=== PATIENT | male | born 1990 | race Hispanic/Latino ===

== ENCOUNTER 2016-11-27 19:12 | Inpatient (IN) | payer OTHER ==
--- NOTE | 2016-11-27 19:31 | C.PDOC ---
History Of Present Illness Patient is a 26 y/o male, with no significant past medical history, presents to ED for evaluation of RLQ abdominal pain that developed yesterday. Pain is described as dull, aching, and non-radiating. Denies pain being related to any food. Otherwise, denies any n/v/d, constipation, fever, or chills. Time Seen by Provider: 11/27/16 19:31 Chief Complaint (Nursing): Abdominal Pain History Per: Patient History/Exam Limitations: no limitations Onset/Duration Of Symptoms: Days (1), Sudden Onset Current Symptoms Are (Timing): Still Present Context: Other (none) Severity: Moderate Pain Scale Rating Of: 4 Location Of Pain/Discomfort: RUQ Radiation Of Pain To:: None Quality Of Discomfort: Dull, Aching Associated Symptoms: denies: Fever, Chills, Nausea, Vomiting, Diarrhea, Loss Of Appetite, Back Pain, Chest Pain, Constipation, Urinary Symptoms Exacerbating Factors: None Alleviating Factors: None Last Bowel Movement: Other (unknown) Recent travel outside of the [place]: No Additional History Per: Patient Past Medical History Reviewed: Historical Data, Nursing Documentation, Vital Signs Vital Signs: Last Vital Signs Temp 98.8 F 11/27/16 19:19 Pulse 70 11/27/16 19:19 Resp 20 11/27/16 19:19 BP 126/80 11/27/16 19:19 Pulse Ox 99 11/27/16 19:50 - Medical History PMH: No Chronic Diseases Family History: States: No Known Family Hx - Social History Hx Alcohol Use: Yes Hx Substance Use: No - Immunization History Hx Tetanus Toxoid Vaccination: No Hx Influenza Vaccination: No Hx Pneumococcal Vaccination: No Review Of Systems Constitutional: Negative for: Fever, Chills Cardiovascular: Negative for: Chest Pain, Palpitations, Edema, Light Headedness Respiratory: Negative for: Cough, Shortness of Breath, Wheezing Gastrointestinal: Positive for: Abdominal Pain (RLQ). Negative for: Nausea, Vomiting, Diarrhea, Constipation Genitourinary: Negative for: Dysuria, Frequency, Incontinence, Hematuria, Penile Discharge, Penile Pain Musculoskeletal: Negative for: Neck Pain, Back Pain Skin: Negative for: Rash, Lesions, Bruising Neurological: Negative for: Weakness, Numbness, Headache, Dizziness Physical Exam - Physical Exam Appears: Non-toxic, No Acute Distress Skin: Warm, Dry Head: Normacephalic Eye(s): bilateral: Normal Inspection Oral Mucosa: Moist Neck: Supple Chest: Symmetrical Cardiovascular: Rhythm Regular Respiratory: No Rales, No Rhonchi, No Wheezing Gastrointestinal/Abdominal: Bowel Sounds (Tympanic to percussion), Soft, Tenderness (RLQ), No Distention, No Guarding, No Rebound Back: No CVA Tenderness Extremity: Normal ROM Extremity: Bilateral: Atraumatic, Normal ROM Pulses: Left Dorsalis Pedis: Normal, Right Dorsalis Pedis: Normal Neurological/Psych: Oriented x3, Normal Speech, Normal Cognition Gait: Steady ED Course And Treatment - Laboratory Results Result Diagrams: 11/27/16 19:37 11/27/16 19:37 O2 Sat by Pulse Oximetry: 99 (on RA) Pulse Ox Interpretation: Normal Progress Note: Plan: Blood work, UA. Patient was given IV fluids, Toradol, and Pepcid. Disposition Discussed With : Diego Garcia Comment: accepted the pt on her service and took over the care at 9:48 PM Doctor Will See Patient In The: Hospital Counseled Patient/Family Regarding: Studies Performed, Diagnosis - Disposition Disposition: HOSPITALIZED Disposition Time: 19:31 Condition: FAIR Forms: [facility] (Swedish) - POA Present On Arrival: None - Clinical Impression Clinical Impression: Acute appendicitis - Scribe Statement The provider has reviewed the documentation as recorded by the Scribcitlaly Pelaez All medical record entries made by the Scribe were at my direction and personally dictated by me. I have reviewed the chart and agree that the record accurately reflects my personal performance of the history, physical exam, medical decision making, and the department course for this patient. I have also personally directed, reviewed, and agree with the discharge instructions and disposition. Decision To Admit - Pt Status Changed To: Hospital Disposition Of: Inpatient - Admit Certification Admit to Inpatient:: After my assessment, the patient will require hospitalization for at least two midnights. This is because of the severity of symptoms shown, intensity of services needed, and/or the medical risk in this patient being treated as an outpatient. - InPatient: Physician Admission Certification:: After my assessment, the patient will require hospitalization for at least two midnights. This is because of the severity of symptoms shown, intensity of services needed, and/or the medical risk in this patient being treated as an outpatient. - . Bed Request Type: Regular Admitting Physician: Diego Garcia Patient Diagnosis: Acute appendicitis
[2016-11-27] MEDS ORDERED: Sodium Chloride 0.9% 1,000 ML IV ONE (19:34)
[2016-11-27] MEDS ORDERED: Sodium Chloride 0.9% 1,000 ML ONE (19:39)
[2016-11-27 19:42] LABS: BASO % 0.4 % (0.0-2.0); EOS # 0.1 K/uL (0.0-0.7); EOS % 0.7 % (0.0-4.0); HEMATOCRIT 43.5 % (35.0-51.0); LYMPH # 1.4 K/uL (1.0-4.3); LYMPH % 14.7 % (20.0-40.0); MEAN CELL VOLUME 83.6 fL (80.0-94.0); MEAN CORPUSCULAR HEMOGLOBIN 28.8 pg (27.0-31.0); MEAN CORPUSCULAR HGB CONC 34.5 g/dL (33.0-37.0); MEAN PLATELET VOLUME 11.3 fL (7.2-11.7); MONO # 0.6 K/uL (0.0-0.8); MONO % 6.3 % (0.0-10.0); RED CELL DISTRIBUTION WIDTH 13.4 % (11.5-14.5); WHITE BLOOD COUNT 9.4 K/uL (4.8-10.8)
[2016-11-27 19:44] LABS: RBC URINE < 1 /hpf (0-3); URINE BILIRUBIN NEGATIVE (NEGATIVE); URINE BLOOD NEGATIVE (NEGATIVE); URINE COLOR Yellow (YELLOW); URINE GLUCOSE (UA) NORMAL (Normal); URINE KETONE NEGATIVE (NEGATIVE); URINE LEUKOCYTE ESTERASE NEG Leu/uL (Negative); URINE PROTEIN NEGATIVE (NEGATIVE); URINE UROBILINOGEN NORMAL mg/dL (0.2-1.0)
[2016-11-27 19:52] LABS: CHLORIDE 98 mmol/L (98-107)
[2016-11-27 19:53] LABS: POTASSIUM 3.8 mmol/L (3.6-5.2); SODIUM 137 mmol/L (132-148)
[2016-11-27 19:55] LABS: CARBON DIOXIDE 27 mmol/L (22-30); GFR AFRICAN-AMERICAN > 60
[2016-11-27 19:56] LABS: ALB/GLOB RATIO 1.3 (1.0-2.1); ALKALINE PHOSPHATASE 57 U/L (38-126); ALT/SGPT 33 U/L (21-72); AST/SGOT 21 U/L (17-59); BILIRUBIN,TOTAL 0.7 mg/dL (0.2-1.3); BLOOD UREA NITROGEN 12 mg/dL (9-20); CALCIUM 8.9 mg/dl (8.6-10.4); GLUCOSE,RANDOM 95 mg/dL (75-110); TOTAL PROTEIN 7.4 g/dL (6.3-8.3)
[2016-11-27] MEDS ORDERED: Iodixanol 320 MG/ML 100 ML BOTTLE IV ONE (20:33)
--- NOTE | 2016-11-27 21:25 | CT ---
EXAM: CT Abdomen and Pelvis With Intravenous Contrast EXAM DATE/TIME: Exam ordered 11/27/2016 8:06 PM CLINICAL HISTORY: 26 years old, male; Pain; Abdominal pain; Flank; Right lower quadrant (rlq); Additional info: Rlq abd pain TECHNIQUE: Axial computed tomography images of the abdomen and pelvis with intravenous contrast. All CT scans at this facility use one or more dose reduction techniques, viz.: automated exposure control; ma/kV adjustment per patient size (including targeted exams where dose is matched to indication; i.e. head); or iterative reconstruction technique. Coronal and sagittal reformatted images were created and reviewed. CONTRAST: 100 mL of VISIPAQUE 320 administered intravenously. COMPARISON: No relevant prior studies available. FINDINGS: Lower thorax: No acute findings. ABDOMEN: Liver: Unremarkable. No mass. Gallbladder and bile ducts: Unremarkable. No calcified stones. No ductal dilation. Pancreas: Unremarkable. No mass. No ductal dilation. Spleen: Unremarkable. No splenomegaly. Adrenals: Unremarkable. No mass. Kidneys and ureters: Unremarkable. No solid mass. No hydronephrosis. Stomach and bowel: Unremarkable. No obstruction. No mucosal thickening. Appendix: Mild periappendiceal inflammatory changes are noted. PELVIS: Bladder: Unremarkable. No mass. Reproductive: Unremarkable as visualized. ABDOMEN and PELVIS: Intraperitoneal space: Unremarkable. No free air. No significant fluid collection. Bones/joints: No acute fracture. No dislocation. Soft tissues: Unremarkable. Vasculature: Unremarkable. No abdominal aortic aneurysm. Lymph nodes: Mildly prominent mesenteric lymph nodes are present. IMPRESSION: 1. Early acute appendicitis. No abscess. No perforation.
[2016-11-27] MEDS ORDERED: Piperacillin/Tazobact 3.375 gm 100 ML IVPB STA (21:39)
[2016-11-27] MEDS ORDERED: Piperacillin/Tazobact 3.375 gm 100 ML IVPB ONE (21:46)
[2016-11-27 23:07] LABS: INR 1.3
[2016-11-27] MEDS ORDERED: Piperacillin/Tazobact 3.375 GM in Sodium Chloride 100 ML IVPB SCH (23:15)
--- NOTE | 2016-11-27 23:29 | CP.PCM.HP ---
History of Present Illness - History of Present Illness History of Present Illness: Patient is a 26 y/o male who presented to the ED complaining of RLQ pain that started last night. Pt describes the pain as cramping and rates it a 5-6/10. Pt reports he has felt no relieve in pain even after having BM/passing flatus. Pt states the pain is relieved by staying still and movement makes the pain worse. Pt denies worsening of abdominal pain after eating. Patient admits to nausea. Pt denies fevers, chills, vomiting, diarrhea, constipation. PMHx: None PSurgHx:None Allergies: NKDA Social: Student, non-smoker. Admits to occasional social drinking. Present on Admission - Present on Admission Any Indicators Present on Admission: No Review of Systems - Review of Systems Review of Systems: 12 point ROS, unremarkable except as stated on HPI. Past Patient History - Past Medical History & Family History Past Medical History?: Yes - Past Social History Smoking Status: Never Smoked Alcohol: Social - PSYCHIATRIC Hx Substance Use: No - SURGICAL HISTORY Hx Surgeries: No Meds Allergies/Adverse Reactions: Allergies Allergy/AdvReac Type Severity Reaction Status Date / Time No Known Allergies Allergy Unverified 11/27/16 19:22 Physical Exam - Constitutional Appears: Non-toxic, No Acute Distress - Head Exam Head Exam: ATRAUMATIC, NORMAL INSPECTION - Eye Exam Eye Exam: EOMI - ENT Exam ENT Exam: Mucous Membranes Moist - Respiratory Exam Respiratory Exam: NORMAL BREATHING PATTERN. absent: Accessory Muscle Use - Cardiovascular Exam Cardiovascular Exam: +S1, +S2 - GI/Abdominal Exam GI & Abdominal Exam: Soft, Tenderness. absent: Distended, Guarding Additional comments: + McBurney's sign - Rovsing sign + RLQ tenderness - Psoas - Obturator - Extremities Exam Extremities exam: Positive for: normal inspection - Neurological Exam Neurological exam: Alert, Oriented x3 - Psychiatric Exam Psychiatric exam: Normal Affect, Normal Mood - Skin Skin Exam: Normal Color, Warm Results - Vital Signs Recent Vital Signs: Last Vital Signs Temp 98.8 F 11/27/16 19:19 Pulse 70 11/27/16 19:19 Resp 20 11/27/16 19:19 BP 126/80 11/27/16 19:19 Pulse Ox 99 11/27/16 21:49 - Labs Result Diagrams: 11/27/16 19:37 11/27/16 19:37 Labs: Laboratory Results - last 24 hr 11/27/16 22:49 PT 14.5 H INR 1.3 APTT 35 H - Imaging and Cardiology CT scan - abdomen Status: Image reviewed by me, Report reviewed by me Assessment & Plan - Assessment and Plan (Free Text) Assessment: 26 year old male with early acute appendicitis. -NPO -IVF -Abx -Analgesics/Anti-emetics/Anti-pyretic -SCDs -Pt currently scheduled for OR tomorrow for laparoscopic appendectomy, possible open -Consent in chart -Further recs per Dr. Jose Harrell PGY 2
[2016-11-28] MEDS: Morphine 4 MG/ML VIAL IVP PRN ×2 (06:08→21:15)
[2016-11-28] MEDS: Piperacillin/Tazobact 3.375 GM in Sodium Chloride 100 ML IVPB SCH ×3 (06:11→21:14)
[2016-11-28] MEDS: Lactated Ringer's 1,000 ML IV SCH ×2 (09:30)
[2016-11-28] MEDS ORDERED: Pneumococcal 23-Valent Vaccine IM ONE (11:01)
[2016-11-28] MEDS ORDERED: Midazolam 2 MG/2 ML VIAL ONE (14:43)
[2016-11-28] MEDS ORDERED: Rocuronium 10 mg/ml (5 ml) ONE (14:44)
[2016-11-28] MEDS ORDERED: Propofol 10 mg/ml Inj (20 ML) ONE (14:44)
[2016-11-28] MEDS ORDERED: Lactated Ringer's 1,000 ML IV ONE ×2 (15:55→17:02)
[2016-11-28] MEDS ORDERED: Neostigmine Methylsulfate 3mg/3ml Syringe IV ONE (16:47)
[2016-11-28] MEDS ORDERED: HYDROmorphone 0.5 mg/0.5 ml ISec IVP PRN (16:51)
--- NOTE | 2016-11-28 17:20 | PCM.SURG1 ---
Surgeon's Initial Post Op Note - Surgeon's Notes Surgeon: MD Jose Hand I Blocker: ESSENCE TariqY2, Carlos Pre-Operative Diagnosis: acute appendicitis Operative Findings: inflamed appendix Post-Operative Diagnosis: acute appendicitis Operation Performed: laparoscopic appendectomy Specimen/Specimens Removed: appendix Estimated Blood Loss: EBL {In ML}: 10 Date of Surgery/Procedure: 11/28/16 Time of Surgery/Procedure: 16:20
[2016-11-29] MEDS: Lactated Ringer's 1,000 ML IV SCH ×3 (00:07→09:45)
[2016-11-29 04:50] VITALS: RESP 20
[2016-11-29] MEDS: Piperacillin/Tazobact 3.375 GM in Sodium Chloride 100 ML IVPB SCH (05:48)
[2016-11-29 08:20] VITALS: BP 110/67; PULSE 82; TEMP 97.6; O2SAT 99
[2016-11-29] MEDS: Morphine 4 MG/ML VIAL IVP PRN (09:03)
--- NOTE | 2016-11-29 09:59 | CP.PCM.DIS ---
Provider - Provider Date of Admission: 11/27/16 21:47 Attending physician: Diego Garcia MD Time Spent in preparation of Discharge (in minutes): 35 Diagnosis - Discharge Diagnosis (1) Acute appendicitis Status: Acute Hospital Course - Lab Results Lab Results: Most Recent Lab Values WBC 9.4 K/uL (4.8-10.8) 11/27/16 19:37 RBC 5.21 Mil/uL (4.40-5.90) 11/27/16 19:37 Hgb 15.0 g/dL (12.0-18.0) 11/27/16 19:37 Hct 43.5 % (35.0-51.0) 11/27/16 19:37 MCV 83.6 fL (80.0-94.0) 11/27/16 19:37 MCH 28.8 pg (27.0-31.0) 11/27/16 19:37 MCHC 34.5 g/dL (33.0-37.0) 11/27/16 19:37 RDW 13.4 % (11.5-14.5) 11/27/16 19:37 Plt Count 133 K/uL (130-400) 11/27/16 19:37 MPV 11.3 fL (7.2-11.7) 11/27/16 19:37 Neut % (Auto) 77.9 % (50.0-75.0) H 11/27/16 19:37 Lymph % (Auto) 14.7 % (20.0-40.0) L 11/27/16 19:37 Sampson % (Auto) 6.3 % (0.0-10.0) 11/27/16 19:37 Eos % (Auto) 0.7 % (0.0-4.0) 11/27/16 19:37 Baso % (Auto) 0.4 % (0.0-2.0) 11/27/16 19:37 Neut # 7.3 K/uL (1.8-7.0) H 11/27/16 19:37 Lymph # 1.4 K/uL (1.0-4.3) 11/27/16 19:37 Sampson # 0.6 K/uL (0.0-0.8) 11/27/16 19:37 Eos # 0.1 K/uL (0.0-0.7) 11/27/16 19:37 Baso # 0.0 K/uL (0.0-0.2) 11/27/16 19:37 PT 14.5 SECONDS (9.7-12.2) H 11/27/16 22:49 INR 1.3 11/27/16 22:49 APTT 35 SECONDS (21-34) H 11/27/16 22:49 Sodium 137 mmol/L (132-148) 11/27/16 19:37 Potassium 3.8 mmol/L (3.6-5.2) 11/27/16 19:37 Chloride 98 mmol/L (98-107) 11/27/16 19:37 Carbon Dioxide 27 mmol/L (22-30) 11/27/16 19:37 Anion Gap 16 (10-20) 11/27/16 19:37 BUN 12 mg/dL (9-20) 11/27/16 19:37 Creatinine 0.9 MG/DL (0.8-1.5) 11/27/16 19:37 Est GFR ( Amer) > 60 11/27/16 19:37 Est GFR (Non-Af Amer) > 60 11/27/16 19:37 Random Glucose 95 mg/dL (75-110) 11/27/16 19:37 Calcium 8.9 mg/dl (8.6-10.4) 11/27/16 19:37 Total Bilirubin 0.7 mg/dL (0.2-1.3) 11/27/16 19:37 AST 21 U/L (17-59) 11/27/16 19:37 ALT 33 U/L (21-72) 11/27/16 19:37 Alkaline Phosphatase 57 U/L (38-126) 11/27/16 19:37 Total Protein 7.4 g/dL (6.3-8.3) 11/27/16 19:37 Albumin 4.2 g/dL (3.5-5.0) 11/27/16 19:37 Globulin 3.3 gm/dL (2.2-3.9) 11/27/16 19:37 Albumin/Globulin Ratio 1.3 (1.0-2.1) 11/27/16 19:37 Lipase 118 U/L (23-300) 11/27/16 19:37 Urine Color Yellow (YELLOW) 11/27/16 19:37 Urine Clarity Clear (Clear) 11/27/16 19:37 Urine pH 8.0 (5.0-8.0) 11/27/16 19:37 Ur Specific [place] 1.013 (1.003-1.030) 11/27/16 19:37 Urine Protein Negative mg/dL (NEGATIVE) 11/27/16 19:37 Urine Glucose (UA) Normal mg/dL (Normal) 11/27/16 19:37 Urine Ketones Negative mg/dL (NEGATIVE) 11/27/16 19:37 Urine Blood Negative (NEGATIVE) 11/27/16 19:37 Urine Nitrate Negative (NEGATIVE) 11/27/16 19:37 Urine Bilirubin Negative (NEGATIVE) 11/27/16 19:37 Urine Urobilinogen Normal mg/dL (0.2-1.0) 11/27/16 19:37 Ur Leukocyte Esterase Neg James/uL (Negative) 11/27/16 19:37 Urine RBC (Auto) < 1 /hpf (0-3) 11/27/16 19:37 - Hospital Course Hospital Course: 26 y/o male who presented to the ED complaining of RLQ pain that started last night. Pt describes the pain as cramping and rates it a 5-6/10. Pt reports he has felt no relieve in pain even after having BM/passing flatus. Pt states the pain is relieved by staying still and movement makes the pain worse. Pt denies worsening of abdominal pain after eating. Patient admits to nausea. Pt denies fevers, chills, vomiting, diarrhea, constipation. Patient had laparoscopic appendectomy done same day. Patient tolerated procedure without complication. The next day, patient tolerated diet. He denied pain, n/v/d. Patient stable for discharge as per Dr. Garcia. Keep dressing on for 48 hours after procedure. Refrain from heavy lifting. Keep area clean and dry, do not soak. Please call Dr. Garcia if any issues. Follow up as outpatirnt in 1 week. Discharge Exam - Head Exam Head Exam: ATRAUMATIC, NORMAL INSPECTION, NORMOCEPHALIC - Eye Exam Eye Exam: Normal appearance - ENT Exam ENT Exam: Mucous Membranes Moist - Respiratory Exam Respiratory Exam: NORMAL BREATHING PATTERN - Cardiovascular Exam Cardiovascular Exam: REGULAR RHYTHM - GI/Abdominal Exam GI & Abdominal Exam: Soft. absent: Distended, Firm, Guarding, Mass, Rebound, Tenderness Additional comments: dressing clean dry and intact - Extremities Exam Extremities exam: pedal pulses present - Back Exam Back exam: absent: CVA tenderness (L), CVA tenderness (R) - Neurological Exam Neurological exam: Alert, Normal Gait, Oriented x3 - Psychiatric Exam Psychiatric exam: Normal Affect, Normal Mood - Skin Skin Exam: Dry, Intact, Normal Color, Warm Discharge Plan - Follow Up Plan Condition: GOOD Instructions: Oxycodone/Acetaminophen (By mouth), Laparoscopic Appendectomy (DC ) Additional Instructions: Patient stable for discharge as per Dr. Garcia. Keep dressing on for 48 hours after procedure. Refrain from heavy lifting. Keep area clean and dry, do not soak. Please call Dr. Garcia if any issues. Follow up as outpatirnt in 1 week. Referrals: Diego Garcia MD [Staff Provider] -
[2016-11-29] MEDS ORDERED: Pneumococcal 23-Valent Vaccine IM ONE (10:00)
--- NOTE | 2016-11-29 22:06 | OP ---
PROCEDURE DATE: 11/28/2016 SURGEON: Dr. Garcia. GAUGER DELIVERY: Dr. Tariq. TYPE OF ANESTHESIA: General ANESTHESIOLOGIST: NELIDA Peterson and Dr. Jayy Urrutia PREOPERATIVE DIAGNOSIS: Acute appendicitis. POSTOPERATIVE DIAGNOSIS: Acute appendicitis. PROCEDURE: Laparoscopic appendectomy. DESCRIPTION OF OPERATION: With the patient in the supine position under adequate general anesthesia, the abdomen was prepped and draped in the usual sterile manner. Veress needle puncture was performed at the umbilicus with insufflation to 15 cm of water pressure CO2 and a 10 mm laparoscopic trocar was inserted via an umbilical incision. Under direct vision, 5 and 12 mm trocars were inserted in the left lower quadrant and suprapubic area respectively and the appendix was visualized lying in the right iliac fossa, gently adherent to the right pelvic side wall. The appendix was grasped and elevated. The mesoappendix was dissected and divided using an endo DAVE stapler. The appendix itself was then divided close to the cecum, also using the Endo DAVE stapler. The stump was inspected for hemostasis. The appendix was placed in a specimen retrieval bag and removed via the 12 mm port site. The right lower quadrant was irrigated and suctioned. The pneumoperitoneum was released, and the trocars were removed. The umbilical and 12 mm port sites were closed with figure-of-8 fascial sutures of 0-Vicryl. All incisions were closed with 4-0 Monocryl subcuticular sutures and Steri-Strips. Dry sterile dressings were applied. The patient tolerated the procedure well and transferred to the recovery room in stable condition. ESTIMATED BLOOD LOSS: From the procedure was 10 mL Diego [facility] MD [facility]
== END 2016-11-29 13:28 | disposition home or self-care (01) | DRG 343 ==
LOC: C.ER 19:12 → C.9E 21:47 → C.6T 22:48
PROVIDERS: ADMIT Specialist; ATTEND Specialist
PROC: 0DTJ4ZZ Resection of Appendix, Percutaneous Endoscopic Approach (ICD-10-PCS; principal; 2016-11-29)
DX: K35.80 Unspecified acute appendicitis (principal)